=== PATIENT | male | born 1955 | race Hispanic/Latino ===

== ENCOUNTER → 2020-11-29 | Outpatient (CLI) | payer OTHER ==
[~2020-11-29] MED LIST: AMLO-258 PO; ASPI-556 PO; CANA300T PO; ISOS30TA11 PO; LISI40TA9 PO; METF-446 PO; METO100T14 PO; SIMV40TA59 PO; VALS1TAB81 PO
== END | disposition home or self-care (01) ==
LOC: RAH 08:12
PROVIDERS: ATTEND Internal Medicine
DX: R16.0 Hepatomegaly, not elsewhere classified (principal); R60.0 Localized edema
CPT/HCPCS: 76700

== ENCOUNTER → 2020-12-09 | Outpatient (CLI) | payer OTHER ==
[~2020-12-09] MED LIST changes: +LIDOCAINE HCL 4% LTA SOL 4 ML VIAL ONE
== END | disposition home or self-care (01) ==
LOC: WHH 09:52
PROVIDERS: ATTEND Family Medicine
DX: I87.311 Chronic venous hypertension (idiopathic) with ulcer of right lower extremity (principal); E11.622 Type 2 diabetes mellitus with other skin ulcer; L97.812 Non-pressure chronic ulcer of other part of right lower leg with fat layer exposed; I89.0 Lymphedema, not elsewhere classified; E11.22 Type 2 diabetes mellitus with diabetic chronic kidney disease; I12.9 Hypertensive chronic kidney disease with stage 1 through stage 4 chronic kidney disease, or unspecified chronic kidney disease; N18.9 Chronic kidney disease, unspecified; E66.9 Obesity, unspecified; E78.5 Hyperlipidemia, unspecified; E66.01 Morbid (severe) obesity due to excess calories; K21.9 Gastro-esophageal reflux disease without esophagitis; I87.2 Venous insufficiency (chronic) (peripheral); Z68.41 Body mass index [BMI] 40.0-44.9, adult
CPT/HCPCS: 11042; 29580; A6021; A6197; A6456

== ENCOUNTER → 2020-12-16 | Outpatient (CLI) | payer OTHER ==
[~2020-12-16] MED LIST changes: -LIDOCAINE HCL 4% LTA SOL 4 ML VIAL ONE
== END | disposition home or self-care (01) ==
LOC: WHH 10:52
PROVIDERS: ATTEND Family Medicine
DX: I87.311 Chronic venous hypertension (idiopathic) with ulcer of right lower extremity (principal); E11.622 Type 2 diabetes mellitus with other skin ulcer; L97.812 Non-pressure chronic ulcer of other part of right lower leg with fat layer exposed; I89.0 Lymphedema, not elsewhere classified; E11.22 Type 2 diabetes mellitus with diabetic chronic kidney disease; I12.9 Hypertensive chronic kidney disease with stage 1 through stage 4 chronic kidney disease, or unspecified chronic kidney disease; N18.9 Chronic kidney disease, unspecified; E66.9 Obesity, unspecified; E78.5 Hyperlipidemia, unspecified; E66.01 Morbid (severe) obesity due to excess calories; K21.9 Gastro-esophageal reflux disease without esophagitis; I87.2 Venous insufficiency (chronic) (peripheral); Z68.41 Body mass index [BMI] 40.0-44.9, adult
CPT/HCPCS: 11042; 29580; A4450; A6021; A6197; A6456

== ENCOUNTER → 2020-12-23 | Outpatient (CLI) | payer OTHER | END | disposition home or self-care (01) | LOC: WHH 10:29 | PROVIDERS: ATTEND Family Medicine | DX: I87.311 Chronic venous hypertension (idiopathic) with ulcer of right lower extremity (principal); E11.622 Type 2 diabetes mellitus with other skin ulcer; L97.812 Non-pressure chronic ulcer of other part of right lower leg with fat layer exposed; I89.0 Lymphedema, not elsewhere classified; E11.22 Type 2 diabetes mellitus with diabetic chronic kidney disease; I12.9 Hypertensive chronic kidney disease with stage 1 through stage 4 chronic kidney disease, or unspecified chronic kidney disease; N18.9 Chronic kidney disease, unspecified; E66.9 Obesity, unspecified; E78.5 Hyperlipidemia, unspecified; E66.01 Morbid (severe) obesity due to excess calories; K21.9 Gastro-esophageal reflux disease without esophagitis; I87.2 Venous insufficiency (chronic) (peripheral); Z68.41 Body mass index [BMI] 40.0-44.9, adult | CPT/HCPCS: A6021; A6197; A6212; G0463 ==

== ENCOUNTER → 2020-12-30 | Outpatient (CLI) | payer OTHER ==
[~2020-12-30] MED LIST changes: +LIDOCAINE HCL 4% LTA SOL 4 ML VIAL ONE
== END | disposition home or self-care (01) ==
LOC: WHH 11:12
PROVIDERS: ATTEND Family Medicine
DX: I87.311 Chronic venous hypertension (idiopathic) with ulcer of right lower extremity (principal); E11.622 Type 2 diabetes mellitus with other skin ulcer; L97.812 Non-pressure chronic ulcer of other part of right lower leg with fat layer exposed; I89.0 Lymphedema, not elsewhere classified; E11.22 Type 2 diabetes mellitus with diabetic chronic kidney disease; I12.9 Hypertensive chronic kidney disease with stage 1 through stage 4 chronic kidney disease, or unspecified chronic kidney disease; N18.9 Chronic kidney disease, unspecified; E66.9 Obesity, unspecified; E78.5 Hyperlipidemia, unspecified; E66.01 Morbid (severe) obesity due to excess calories; K21.9 Gastro-esophageal reflux disease without esophagitis; I87.2 Venous insufficiency (chronic) (peripheral); Z68.41 Body mass index [BMI] 40.0-44.9, adult
CPT/HCPCS: A4450; A6021; A6197; G0463

== ENCOUNTER → 2021-01-06 | Outpatient (CLI) | payer OTHER | END | disposition home or self-care (01) | LOC: WHH 11:15 | PROVIDERS: ATTEND Family Medicine | DX: I87.311 Chronic venous hypertension (idiopathic) with ulcer of right lower extremity (principal); L97.811 Non-pressure chronic ulcer of other part of right lower leg limited to breakdown of skin; I89.0 Lymphedema, not elsewhere classified; E11.42 Type 2 diabetes mellitus with diabetic polyneuropathy; E11.21 Type 2 diabetes mellitus with diabetic nephropathy; E11.51 Type 2 diabetes mellitus with diabetic peripheral angiopathy without gangrene; I10 Essential (primary) hypertension; E78.5 Hyperlipidemia, unspecified; E66.01 Morbid (severe) obesity due to excess calories; E78.00 Pure hypercholesterolemia, unspecified; M19.90 Unspecified osteoarthritis, unspecified site; I87.2 Venous insufficiency (chronic) (peripheral); F17.200 Nicotine dependence, unspecified, uncomplicated; F32.9 Major depressive disorder, single episode, unspecified; Z86.718 Personal history of other venous thrombosis and embolism; Z68.37 Body mass index [BMI] 37.0-37.9, adult; Z86.73 Personal history of transient ischemic attack (TIA), and cerebral infarction without residual deficits | CPT/HCPCS: G0463 ==

== ENCOUNTER → 2021-01-13 | Outpatient (CLI) | payer OTHER ==
[~2021-01-13] MED LIST changes: -LIDOCAINE HCL 4% LTA SOL 4 ML VIAL ONE
== END | disposition home or self-care (01) ==
LOC: WHH 11:21
PROVIDERS: ATTEND Family Medicine
DX: I87.311 Chronic venous hypertension (idiopathic) with ulcer of right lower extremity (principal); L97.818 Non-pressure chronic ulcer of other part of right lower leg with other specified severity; I89.0 Lymphedema, not elsewhere classified; E11.42 Type 2 diabetes mellitus with diabetic polyneuropathy; E11.21 Type 2 diabetes mellitus with diabetic nephropathy; E11.51 Type 2 diabetes mellitus with diabetic peripheral angiopathy without gangrene; I10 Essential (primary) hypertension; E78.5 Hyperlipidemia, unspecified; E66.01 Morbid (severe) obesity due to excess calories; E78.00 Pure hypercholesterolemia, unspecified; M19.90 Unspecified osteoarthritis, unspecified site; I87.2 Venous insufficiency (chronic) (peripheral); F17.200 Nicotine dependence, unspecified, uncomplicated; F32.9 Major depressive disorder, single episode, unspecified; Z86.718 Personal history of other venous thrombosis and embolism; Z86.73 Personal history of transient ischemic attack (TIA), and cerebral infarction without residual deficits; Z68.41 Body mass index [BMI] 40.0-44.9, adult
CPT/HCPCS: G0463

== ENCOUNTER → 2021-06-21 | Outpatient (CLI) | payer OTHER ==
[~2021-06-21] MED LIST changes: +LIDOCAINE HCL 4% LTA SOL 4 ML VIAL ONE
== END | disposition home or self-care (01) ==
LOC: WHH 09:38
PROVIDERS: ATTEND Family Medicine
DX: I87.333 Chronic venous hypertension (idiopathic) with ulcer and inflammation of bilateral lower extremity (principal); E11.622 Type 2 diabetes mellitus with other skin ulcer; L97.221 Non-pressure chronic ulcer of left calf limited to breakdown of skin; L97.818 Non-pressure chronic ulcer of other part of right lower leg with other specified severity; L97.828 Non-pressure chronic ulcer of other part of left lower leg with other specified severity; E11.42 Type 2 diabetes mellitus with diabetic polyneuropathy; E11.21 Type 2 diabetes mellitus with diabetic nephropathy; E11.51 Type 2 diabetes mellitus with diabetic peripheral angiopathy without gangrene; E11.22 Type 2 diabetes mellitus with diabetic chronic kidney disease; I12.9 Hypertensive chronic kidney disease with stage 1 through stage 4 chronic kidney disease, or unspecified chronic kidney disease; N18.9 Chronic kidney disease, unspecified; I89.0 Lymphedema, not elsewhere classified; K21.9 Gastro-esophageal reflux disease without esophagitis; N40.0 Benign prostatic hyperplasia without lower urinary tract symptoms; E78.00 Pure hypercholesterolemia, unspecified; E78.5 Hyperlipidemia, unspecified; E66.01 Morbid (severe) obesity due to excess calories; M19.90 Unspecified osteoarthritis, unspecified site; F32.9 Major depressive disorder, single episode, unspecified; F17.200 Nicotine dependence, unspecified, uncomplicated; Z68.41 Body mass index [BMI] 40.0-44.9, adult; Z79.84 Long term (current) use of oral hypoglycemic drugs; Z79.899 Other long term (current) drug therapy; Z86.718 Personal history of other venous thrombosis and embolism; Z86.73 Personal history of transient ischemic attack (TIA), and cerebral infarction without residual deficits
CPT/HCPCS: 29580; A4450; A6197; A6456; G0463

== ENCOUNTER → 2021-06-28 | Outpatient (CLI) | payer OTHER ==
[~2021-06-28] MED LIST changes: -LIDOCAINE HCL 4% LTA SOL 4 ML VIAL ONE
== END | disposition home or self-care (01) ==
LOC: WHH 09:42
PROVIDERS: ATTEND Family Medicine
DX: I87.333 Chronic venous hypertension (idiopathic) with ulcer and inflammation of bilateral lower extremity (principal); E11.622 Type 2 diabetes mellitus with other skin ulcer; L97.221 Non-pressure chronic ulcer of left calf limited to breakdown of skin; L97.811 Non-pressure chronic ulcer of other part of right lower leg limited to breakdown of skin; E11.628 Type 2 diabetes mellitus with other skin complications; E11.42 Type 2 diabetes mellitus with diabetic polyneuropathy; E11.21 Type 2 diabetes mellitus with diabetic nephropathy; E11.51 Type 2 diabetes mellitus with diabetic peripheral angiopathy without gangrene; E11.22 Type 2 diabetes mellitus with diabetic chronic kidney disease; I12.9 Hypertensive chronic kidney disease with stage 1 through stage 4 chronic kidney disease, or unspecified chronic kidney disease; N18.9 Chronic kidney disease, unspecified; I89.0 Lymphedema, not elsewhere classified; K21.9 Gastro-esophageal reflux disease without esophagitis; N40.0 Benign prostatic hyperplasia without lower urinary tract symptoms; E78.00 Pure hypercholesterolemia, unspecified; E78.5 Hyperlipidemia, unspecified; E66.01 Morbid (severe) obesity due to excess calories; M19.90 Unspecified osteoarthritis, unspecified site; F32.9 Major depressive disorder, single episode, unspecified; F17.200 Nicotine dependence, unspecified, uncomplicated; Z68.41 Body mass index [BMI] 40.0-44.9, adult; Z79.84 Long term (current) use of oral hypoglycemic drugs; Z79.899 Other long term (current) drug therapy; Z86.718 Personal history of other venous thrombosis and embolism; Z86.73 Personal history of transient ischemic attack (TIA), and cerebral infarction without residual deficits
CPT/HCPCS: G0463

== ENCOUNTER 2022-01-11 18:06 | Inpatient (IN) | payer OTHER ==
[~2022-01-11] VITALS: Ht 170.2 cm; Wt 108.0 kg
[2022-01-11] MEDS ORDERED: ACETAMINOPHEN 500 MG TABLET PO ONE (18:30)
[2022-01-11 18:57] LABS: BASOPHILS % (AUTO) 0.3 % (0.0-5.0); EOSINOPHILS % (AUTO) 0.1 % (0.0-8.0); HEMATOCRIT 40.4 % (42-54); LYMPHOCYTES % (AUTO) 3.3 % (21.0-51.0); MEAN CORPUSCULAR HEMOGLOBIN 28.5 pg (27.0-33.0); MEAN CORPUSCULAR HGB CONC 33.9 g/dL (32.0-36.0); MEAN CORPUSCULAR VOLUME 84.2 fL (79-99); MONOCYTES % (AUTO) 6.4 % (3.0-13.0); NEUTROPHILS % (AUTO) 88.9 % (40.0-77.0); PLATELET COUNT (AUTO) 260 K/uL (130-400); RED CELL DISTRIBUTION WIDTH 12.7 % (11.0-15.5); WHITE BLOOD COUNT (AUTO) 26.4 K/uL (4.8-10.8)
[2022-01-11] MEDS ORDERED: 0.9%NACL 1000ML 1,000 ML IV ONE (19:00)
[2022-01-11 19:12] LABS: CREATININE 1.6 mg/dL (0.5-1.5)
[2022-01-11 19:22] LABS: ALBUMIN 3.5 g/dL (3.5-5.0); TOTAL PROTEIN, SERUM 8.3 g/dL (6.0-8.3)
[2022-01-11] MEDS ORDERED: ZOSYN 3.375GM +NS 50ML IV SCH ×2 (20:00→23:30)
[2022-01-11 20:28] LABS: APPEARANCE,URINE CLEAR (CLEAR); BILIRUBIN,URINE NEGATIVE (NEGATIVE); COLOR,URINE YELLOW (YELLOW); GLUCOSE, URINE (UA) 100 mg/dL (NEGATIVE); KETONES,URINE NEGATIVE (NEGATIVE); LEUKOCYTE ESTERASE ,URINE NEGATIVE (NEGATIVE); NITRATE,URINE NEGATIVE (NEGATIVE); OCCULT BLOOD,URINE MODERATE (NEGATIVE); PROTEIN,URINE >=300 mg/dL (NEGATIVE)
[2022-01-11 20:39] LABS: AMORPHOUS SEDIMENT,UR Rare /LPF (None Seen); BACTERIA,URINE None Seen /HPF (None Seen); MUCUS,URINE Rare LPF (None Seen); RBC,URINE 0-1 /HPF (0-1); SQUAMOUS EPITHELIAL CELL,UR Rare /HPF (0-2); WBC,URINE None Seen /HPF (0-1)
[2022-01-11 21:33] LABS: ABG BASE EXCESS 2.7 mmol/L (-2.0-3.0); ABG HCO3 26.5 mmol/L (21.0-28.0); ABG OXYGEN SATURATION 95.3 % (95.0-99.0); ABG PCO2 38 mmHg (35-48)
[2022-01-11] MEDS ORDERED: FINA5TAB41 PO (23:17)
[2022-01-11] MEDS ORDERED: OMEP40CA21 PO (23:17)
[2022-01-11] MEDS ORDERED: CLON1PAT13 TD (23:17)
[2022-01-11] MEDS ORDERED: FURO40TA5 PO (23:17)
[2022-01-11] MEDS ORDERED: LABE300T2 PO (23:17)
[2022-01-11] MEDS ORDERED: TAMS-1 PO (23:17)
[2022-01-11] MEDS ORDERED: RIVA20TA PO (23:17)
[2022-01-11] MEDS ORDERED: HYDR-4154 PO (23:21)
[2022-01-11] MEDS: ACETAMINOPHEN 325 MG TAB PO PRN (23:43)
[2022-01-12] MEDS: ZOSYN 3.375GM +NS 50ML IV SCH ×3 (03:36→20:39)
[2022-01-12 04:00] VITALS: BP 153/68
[2022-01-12] MEDS: ACETAMINOPHEN 325 MG TAB PO PRN ×2 (04:09→14:39)
[2022-01-12 04:40] VITALS: BP 153/68
[2022-01-12 06:28] LABS: BASOPHILS % (AUTO) 0.4 % (0.0-5.0); LYMPHOCYTES % (AUTO) 4.6 % (21.0-51.0); MEAN CORPUSCULAR HEMOGLOBIN 28.7 pg (27.0-33.0); MEAN CORPUSCULAR HGB CONC 34.2 g/dL (32.0-36.0); MEAN CORPUSCULAR VOLUME 83.9 fL (79-99); NEUTROPHILS % (AUTO) 87.9 % (40.0-77.0); PLATELET COUNT (AUTO) 235 K/uL (130-400); RED BLOOD CELL COUNT(AUTO) 4.29 MIL/uL (4.50-6.20); RED CELL DISTRIBUTION WIDTH 13.2 % (11.0-15.5); WHITE BLOOD COUNT (AUTO) 25.2 K/uL (4.8-10.8)
[2022-01-12] MEDS: INSULIN HUMULIN R 100 UNIT/ML 3ML SQ SCH ×4 (06:42→20:48)
[2022-01-12 06:50] LABS: ALBUMIN 2.8 g/dL (3.5-5.0); CREATININE 1.5 mg/dL (0.5-1.5); POTASSIUM 3.7 mmol/L (3.5-5.1)
[2022-01-12 07:03] VITALS: BP 116/59
[2022-01-12] MEDS ORDERED: ENOXAPARIN SODIUM 40 MG/0.4 ML SYRINGE SQ SCH (09:00)
[2022-01-12] MEDS: RIVAROXABAN 20 MG TABLET PO SCH (09:33)
[2022-01-12] MEDS: TAMSULOSIN HCL 0.4 MG CAP.ER.24H PO SCH (09:33)
[2022-01-12] MEDS: FINASTERIDE 5 MG TABLET PO SCH (09:33)
[2022-01-12] MEDS: FUROSEMIDE 40 MG TABLET PO SCH ×2 (09:33→20:40)
[2022-01-12] MEDS ORDERED: LABETALOL HCL 200 MG TABLET PO SCH (10:03)
[2022-01-12] MEDS: LABETALOL HCL 100 MG TABLET PO SCH ×2 (10:07→20:40)
[2022-01-12] MEDS: PANTOPRAZOLE 40 MG TAB DR PO SCH (11:34)
[2022-01-12] MEDS: ISOSORBIDE DINITRATE 20MG TAB PO SCH ×2 (11:34→20:41)
[2022-01-12] MEDS: HYDRALAZINE 25MG TABLET PO SCH (11:34)
[2022-01-12] MEDS: AMLODIPINE 5 MG TAB PO SCH (11:34)
[2022-01-12] MEDS: METFORMIN HCL 500 MG TABLET PO SCH ×2 (11:35→18:01)
[2022-01-12 12:22] VITALS: BP 159/94
[2022-01-12 16:15] VITALS: BP 149/91
[2022-01-12 20:00] VITALS: BP 101/60
[2022-01-12] MEDS: LABETALOL HCL 200 MG TABLET PO SCH (20:40)
[2022-01-12] MEDS: SIMVASTATIN 20 MG TABLET PO SCH (20:40)
[2022-01-13 00:35] VITALS: BP 94/46
[2022-01-13] MEDS: ZOSYN 3.375GM +NS 50ML IV SCH ×3 (03:41→18:51)
[2022-01-13 04:00] VITALS: BP 132/70
[2022-01-13 04:36] LABS: HEMATOCRIT 34.1 % (42-54); MEAN CORPUSCULAR HEMOGLOBIN 28.4 pg (27.0-33.0); MEAN CORPUSCULAR VOLUME 83.4 fL (79-99); RED BLOOD CELL COUNT(AUTO) 4.09 MIL/uL (4.50-6.20)
[2022-01-13 04:51] LABS: CREATININE 1.9 mg/dL (0.5-1.5); POTASSIUM 3.4 mmol/L (3.5-5.1)
[2022-01-13] MEDS: INSULIN HUMULIN R 100 UNIT/ML 3ML SQ SCH ×4 (06:13→21:00)
[2022-01-13] MEDS: PANTOPRAZOLE 40 MG TAB DR PO SCH (06:13)
[2022-01-13 08:00] VITALS: BP 134/67
[2022-01-13] MEDS ORDERED: ZOLPIDEM TARTRATE 5 MG TAB PO PRN (08:00)
[2022-01-13] MEDS: HYDRALAZINE 25MG TABLET PO SCH (09:33)
[2022-01-13] MEDS: RIVAROXABAN 20 MG TABLET PO SCH (09:33)
[2022-01-13] MEDS: AMLODIPINE 5 MG TAB PO SCH (09:34)
[2022-01-13] MEDS: TAMSULOSIN HCL 0.4 MG CAP.ER.24H PO SCH (09:34)
[2022-01-13] MEDS: FUROSEMIDE 40 MG TABLET PO SCH ×2 (09:34→21:36)
[2022-01-13] MEDS: ISOSORBIDE DINITRATE 20MG TAB PO SCH ×2 (09:34→21:37)
[2022-01-13] MEDS: FINASTERIDE 5 MG TABLET PO SCH (09:34)
[2022-01-13] MEDS: LABETALOL HCL 200 MG TABLET PO SCH ×2 (09:35→21:36)
[2022-01-13] MEDS: LABETALOL HCL 100 MG TABLET PO SCH ×2 (09:35→21:36)
[2022-01-13] MEDS: METFORMIN HCL 500 MG TABLET PO SCH ×2 (09:41→17:13)
[2022-01-13 12:00] VITALS: BP 110/41
[2022-01-13 16:00] VITALS: BP 120/61
[2022-01-13 20:00] VITALS: BP 119/74
[2022-01-13] MEDS: SIMVASTATIN 20 MG TABLET PO SCH (21:37)
[2022-01-13] MEDS ORDERED: MUPIROCIN OINTMENT 22 GM TUBE TP SCH (22:00)
[2022-01-14] VITALS: BP 108/62
[2022-01-14] MEDS: ZOSYN 3.375GM +NS 50ML IV SCH ×3 (03:17→20:20)
[2022-01-14 04:00] VITALS: BP 136/75
[2022-01-14 05:35] LABS: HEMATOCRIT 35.1 % (42-54); MEAN CORPUSCULAR VOLUME 84.8 fL (79-99); RED BLOOD CELL COUNT(AUTO) 4.14 MIL/uL (4.50-6.20); RED CELL DISTRIBUTION WIDTH 13.2 % (11.0-15.5); WHITE BLOOD COUNT (AUTO) 12.4 K/uL (4.8-10.8)
[2022-01-14 05:51] LABS: ALBUMIN 2.6 g/dL (3.5-5.0); CREATININE 2.1 mg/dL (0.5-1.5); POTASSIUM 3.4 mmol/L (3.5-5.1)
[2022-01-14] MEDS: INSULIN HUMULIN R 100 UNIT/ML 3ML SQ SCH ×4 (06:05→20:19)
[2022-01-14] MEDS: PANTOPRAZOLE 40 MG TAB DR PO SCH ×2 (06:39→08:07)
[2022-01-14] MEDS ORDERED: LIDOCAINE HCL-MPF 1% 2ML VIAL IV PRN (07:00)
[2022-01-14] MEDS ORDERED: POTASSIUM CHLORIDE 10MEQ/100ML 100 ML IV PRN (07:00)
[2022-01-14 08:00] VITALS: BP 132/63
[2022-01-14] MEDS: TAMSULOSIN HCL 0.4 MG CAP.ER.24H PO SCH (08:07)
[2022-01-14] MEDS: FUROSEMIDE 40 MG TABLET PO SCH ×2 (08:07→20:16)
[2022-01-14] MEDS: LABETALOL HCL 100 MG TABLET PO SCH ×2 (08:08→20:15)
[2022-01-14] MEDS: FINASTERIDE 5 MG TABLET PO SCH (08:08)
[2022-01-14] MEDS: METFORMIN HCL 500 MG TABLET PO SCH ×2 (08:10→16:51)
[2022-01-14] MEDS: ISOSORBIDE DINITRATE 20MG TAB PO SCH ×2 (08:11→20:15)
[2022-01-14] MEDS: RIVAROXABAN 20 MG TABLET PO SCH (08:11)
[2022-01-14] MEDS: AMLODIPINE 5 MG TAB PO SCH (08:11)
[2022-01-14] MEDS: LABETALOL HCL 200 MG TABLET PO SCH ×2 (08:12→20:16)
[2022-01-14] MEDS: HYDRALAZINE 25MG TABLET PO SCH (08:12)
[2022-01-14 12:00] VITALS: BP 138/82
[2022-01-14 16:00] VITALS: BP 96/58
[2022-01-14 20:00] VITALS: BP 143/72
[2022-01-14] MEDS: SIMVASTATIN 20 MG TABLET PO SCH (20:16)
[2022-01-14] MEDS: POTASSIUM CHLORIDE 10% ELIXIR 20 MEQ/15 ML UDCUP PO PRN ×2 (20:18→22:37)
[2022-01-15] VITALS: BP 114/57
[2022-01-15] MEDS: ZOSYN 3.375GM +NS 50ML IV SCH ×2 (03:59→11:25)
[2022-01-15 04:00] VITALS: BP 126/69
[2022-01-15 04:36] LABS: HEMATOCRIT 33.2 % (42-54); MEAN CORPUSCULAR HEMOGLOBIN 28.3 pg (27.0-33.0); MEAN CORPUSCULAR HGB CONC 33.7 g/dL (32.0-36.0); MEAN CORPUSCULAR VOLUME 83.8 fL (79-99); RED BLOOD CELL COUNT(AUTO) 3.96 MIL/uL (4.50-6.20); RED CELL DISTRIBUTION WIDTH 12.9 % (11.0-15.5); WHITE BLOOD COUNT (AUTO) 13.5 K/uL (4.8-10.8)
[2022-01-15 04:44] LABS: CREATININE 2.2 mg/dL (0.5-1.5); POTASSIUM 3.6 mmol/L (3.5-5.1)
[2022-01-15] MEDS: INSULIN HUMULIN R 100 UNIT/ML 3ML SQ SCH ×2 (07:30→11:28)
[2022-01-15 08:00] VITALS: BP 141/61
[2022-01-15] MEDS: FUROSEMIDE 40 MG TABLET PO SCH (09:20)
[2022-01-15] MEDS: LABETALOL HCL 100 MG TABLET PO SCH (09:21)
[2022-01-15] MEDS: LABETALOL HCL 200 MG TABLET PO SCH (09:21)
[2022-01-15] MEDS: FINASTERIDE 5 MG TABLET PO SCH (09:21)
[2022-01-15] MEDS: HYDRALAZINE 25MG TABLET PO SCH (09:21)
[2022-01-15] MEDS: AMLODIPINE 5 MG TAB PO SCH (09:22)
[2022-01-15] MEDS: ISOSORBIDE DINITRATE 20MG TAB PO SCH (09:22)
[2022-01-15] MEDS: RIVAROXABAN 20 MG TABLET PO SCH (09:22)
[2022-01-15] MEDS: TAMSULOSIN HCL 0.4 MG CAP.ER.24H PO SCH (09:22)
[2022-01-15] MEDS: METFORMIN HCL 500 MG TABLET PO SCH (09:33)
[2022-01-15] MEDS: KCL 20 MEQ ERTAB PO PRN ×2 (09:37→11:30)
[2022-01-15 12:00] VITALS: BP 122/65
== END 2022-01-15 13:30 | disposition home or self-care (01) | DRG 871 ==
LOC: EDH 18:06 → EDHIP 22:35 → 4DH 01-12 04:09
PROVIDERS: ADMIT Internal Medicine; ATTEND Internal Medicine
DX: A41.9 Sepsis, unspecified organism (principal); J18.9 Pneumonia, unspecified organism; E46 Unspecified protein-calorie malnutrition; G81.91 Hemiplegia, unspecified affecting right dominant side; I13.0 Hypertensive heart and chronic kidney disease with heart failure and stage 1 through stage 4 chronic kidney disease, or unspecified chronic kidney disease; Z20.822 Contact with and (suspected) exposure to COVID-19; E11.22 Type 2 diabetes mellitus with diabetic chronic kidney disease; N18.9 Chronic kidney disease, unspecified; L97.519 Non-pressure chronic ulcer of other part of right foot with unspecified severity; E11.621 Type 2 diabetes mellitus with foot ulcer; E11.65 Type 2 diabetes mellitus with hyperglycemia; K21.9 Gastro-esophageal reflux disease without esophagitis; E78.5 Hyperlipidemia, unspecified; I50.9 Heart failure, unspecified; Z86.73 Personal history of transient ischemic attack (TIA), and cerebral infarction without residual deficits; Z79.82 Long term (current) use of aspirin; Z79.01 Long term (current) use of anticoagulants; Z79.84 Long term (current) use of oral hypoglycemic drugs; Z79.899 Other long term (current) drug therapy; Z68.37 Body mass index [BMI] 37.0-37.9, adult
CPT/HCPCS: 36415; 36600; 71045; 73630; 80048; 80053; 81001; 82550; 82803; 82948; 83605; 83874; 83880; 84484; 85025; 85027; 87040; 87070; 87077; 87186; 87635; 93005; 93970; C9803; G0378; J1815; J2543; J7030